=== PATIENT | male | born 1980 | race Two or more races ===

== ENCOUNTER 2018-08-06 02:04 | Emergency (ER) | payer OTHER ==
[2018-08-06 02:34] VITALS: BP 116/67; PULSE 60; TEMP 97.5; BMI 23.3
--- NOTE | 2018-08-06 03:14 | PDOC ---
*Physical Exam - Vital Signs Last Vital Signs Temp Pulse Resp BP Pulse Ox 97.5 F L 60 18 116/67 98 08/06/18 02:33 08/06/18 02:33 08/06/18 02:33 08/06/18 02:33 08/06/18 02:33 Medical Decision Making - Medical Decision Making 08/06/18 03:10 Patient seen by the advanced practice provider under my direct supervision. Ancillary testing reviewed as necessary. I agree with plan as outlined by the advanced practice provider. *DC/Admit/Observation/Transfer Diagnosis at time of Disposition: Corneal abrasion Qualifiers: Encounter type: initial encounter Laterality: right Qualified Code(s): S05.01XA - Injury of conjunctiva and corneal abrasion without foreign body, right eye, initial encounter - Discharge Dispostion Disposition: HOME Condition at time of disposition: Stable - Prescriptions Prescriptions: Tobramycin 0.3% Ophth Soln [Tobrex *Ophthalmic Solution*] 1 drop OD Q6H 5 Days # 1 bottle - Referrals Referrals: Jer Walls MD [Staff Physician] - - Patient Instructions Printed Discharge Instructions: DI for Corneal Abrasion Additional Instructions: Use prescribed medication as prescribed. Follow-up referred to ophthalmology as soon as possible for reassessment - Post Discharge Activity
--- NOTE | 2018-08-06 03:28 | PDOC ---
History of Present Illness - General Chief Complaint: Eye Problem Stated Complaint: RIGHT EYE SWELLLING Time Seen by Provider: 08/06/18 03:02 History Source: Patient Exam Limitations: Clinical Condition - History of Present Illness Initial Comments: 08/06/18 03:41 Patient with no significant past predication present with complaint of right eye pain and excessive tearing status post accidentally Walking into a wooden carbinet and scraping the right eye yesterday. Patient reported increased light sensitivity in right eye. Denies glued vision, change in vision. Denies contact lens use. Timing/Duration: 24 hours Past History - Past Medical History Allergies/Adverse Reactions: Allergies Allergy/AdvReac Type Severity Reaction Status Date / Time No Known Allergies Allergy Verified 08/06/18 02:32 Home Medications: Ambulatory Orders Tobramycin 0.3% Ophth Soln [Tobrex *Ophthalmic Solution*] 1 drop OD Q6H 5 Days # 1 bottle 08/06/18 - Suicide/Smoking/Psychosocial Hx Smoking History: Never smoked Have you smoked in the past 12 months: No Information on smoking cessation initiated: No Hx Alcohol Use: No Drug/Substance Use Hx: No Review of Systems - Review of Systems Able to Perform ROS?: Yes Is the patient limited Nepalese proficient: No Constitutional: No: Weakness HEENTM: Yes: Symptoms Reported, See HPI, Eye Pain (right eye), Tearing (right eye). No: Blurred Vision, Recent change in vision, Double Vision, Cataracts, Ear Pain, Ocular Prothesis, Ear Discharge, Nose Pain, Nose Congestion, Tinnitus , Nose Bleeding, Hearing Loss, Throat Pain, Throat Swelling, Mouth Pain, Dental Problems, Difficulty Swallowing, Mouth Swelling, Other Respiratory: No: Symptoms reported, See HPI, Cough, Orthopnea, Shortness of Breath, SOB with Exertion, SOB at Rest, Stridor, Wheezing, Productive cough, Hemoptysis, Other Cardiac (ROS): No: Symptoms Reported, See HPI, Chest Pain, Edema, Irregular Heart Rate, Lightheadedness, Palpitations, Syncope, Chest Tightness, Other ABD/GI: No: Nausea, Vomiting Neurological: No: Headache, Dizziness All Other Systems: Reviewed and Negative *Physical Exam - Vital Signs Last Vital Signs Temp Pulse Resp BP Pulse Ox 97.5 F L 60 18 116/67 98 08/06/18 02:33 08/06/18 02:33 08/06/18 02:33 08/06/18 02:33 08/06/18 02:33 - Physical Exam Comments: 08/06/18 03:44 GENERAL: Well developed, well nourished. Awake and alert. No acute distress. HEENT: Mild right conjunctival erythema with moderate clear tearing from right eye. Eyelids normal bilateral with no erythema or swelling to eyelids. 20/25 OD , 20/20 OS AND 20/20 OU on visual acuity. small 1mm superficial corneal abrasion to right eye on exam with flourescein stain. Normocephalic, atraumatic. PERRLA, EOMI. No left conjunctival pallor. Sclera are non-icteric. Moist mucous membranes. Oropharynx is clear. NECK: Supple. Full ROM. CARDIOVASCULAR: Regular rate and rhythm. No murmurs, rubs, or gallops. Distal pulses are 2+ and symmetric. PULMONARY: No evidence of respiratory distress. Lungs clear to auscultation bilaterally. No wheezing, rales or rhonchi. ABDOMINAL: Soft. Non-tender. Non-distended. No rebound or guarding. No organomegaly. Normoactive bowel sounds. MUSCULOSKELETAL Normal range of motion at all joints. SKIN: Warm and dry. No rashes. No jaundice. NEUROLOGICAL: Alert, awake, appropriate. Gait is normal without ataxia. PSYCHIATRIC: Cooperative. Good eye contact. Appropriate mood General Appearance: Yes: Nourished, Appropriately Dressed. No: Apparent Distress Moderate Sedation - Procedure Monitoring Vital Signs: Procedure Monitoring Vital Signs Temperature 97.5 F L 08/06/18 02:33 Pulse Rate 60 08/06/18 02:33 Respiratory Rate 18 08/06/18 02:33 Blood Pressure 116/67 08/06/18 02:33 O2 Sat by Pulse Oximetry (%) 98 08/06/18 02:33 Medical Decision Making - Medical Decision Making 08/06/18 03:47 Patient with no significant past predication present with complaint of right eye pain and excessive tearing status post accidentally Walking into a wooden carbinet and scraping the right eye yesterday. Patient reported increased light sensitivity in right eye. Denies glued vision, change in vision. Denies contact lens use. Exam significant for Mild right conjunctival erythema with moderate clear tearing from right eye. Eyelids normal bilateral with no erythema or swelling to eyelids. 20/25 OD, 20/20 OS AND 20/20 OU on visual acuity. small 1mm superficial corneal abrasion to right eye on exam with flourescein stain. Normocephalic, atraumatic. PERRLA, EOMI. No left conjunctival pallor 08/06/18 03:48 Patient reported improved eye pain after staining eye with ophthalmic tetracaine. Patient is stable for discharge on Tobrex ophthalmic eyedrops with ophthalmology follow-up *DC/Admit/Observation/Transfer Diagnosis at time of Disposition: Corneal abrasion Qualifiers: Encounter type: initial encounter Laterality: right Qualified Code(s): S05.01XA - Injury of conjunctiva and corneal abrasion without foreign body, right eye, initial encounter - Discharge Dispostion Disposition: HOME Condition at time of disposition: Stable Decision to Admit order: No - Prescriptions Prescriptions: Tobramycin 0.3% Ophth Soln [Tobrex *Ophthalmic Solution*] 1 drop OD Q6H 5 Days # 1 bottle - Referrals Referrals: Jer Walls MD [Staff Physician] - - Patient Instructions Printed Discharge Instructions: DI for Corneal Abrasion Additional Instructions: Use prescribed medication as prescribed. Follow-up referred to ophthalmology as soon as possible for reassessment - Post Discharge Activity
== END 2018-08-06 03:45 | disposition home or self-care (01) ==
LOC: JER 02:04
DX: S05.01XA Injury of conjunctiva and corneal abrasion without foreign body, right eye, initial encounter (principal); W22.8XXA Striking against or struck by other objects, initial encounter; Y93.89 Activity, other specified; Y92.89 Other specified places as the place of occurrence of the external cause; Y99.8 Other external cause status
CPT/HCPCS: 99281-25

== ENCOUNTER 2019-07-12 20:18 | Emergency (ER) | payer OTHER ==
[2019-07-12 20:47] VITALS: BP 118/62; PULSE 89; TEMP 99; BMI 23.3
--- NOTE | 2019-07-12 20:47 | PDOC ---
Rapid Medical Evaluation Chief Complaint: Cold Symptoms Time Seen by Provider: 07/12/19 20:45 Medical Evaluation: Allergies Allergy/AdvReac Type Severity Reaction Status Date / Time No Known Allergies Allergy Verified 08/06/18 02:32 07/12/19 20:46 pt c/o: cough , congestion x 1 day pt on brief exam: 99.7, lcta pt ordered for: none pt to proceed to proceed to the ED Discharge Disposition - Diagnosis Cough, Influenza - Discharge Dispostion Disposition: HOME Condition at time of disposition: Stable - Prescriptions Prescriptions: Oseltamivir Phosphate [Tamiflu] 75 mg PO BID #10 capsule - Referrals Referrals: Carla Morgan MD [Staff Physician] - - Patient Instructions Printed Discharge Instructions: DI for Viral Upper Respiratory Infection -- Adult Additional Instructions: Return to the emergency room for worsening symptoms and without fail follow-up with your primary care physician in 1 to 2 days for further evaluation and treatment options. Tylenol Motrin as directed for fever and body aches. Please take the Tamiflu as directed to help shorten the course of the flu virus. - Post Discharge Activity
[2019-07-12] MEDS ORDERED: ACETAMINOPHEN 500 MG TABLET (FP) PO ONE (22:21)
--- NOTE | 2019-07-12 22:23 | PDOC ---
History of Present Illness - General Chief Complaint: Cold Symptoms Stated Complaint: COUGH/FEVER Time Seen by Provider: 07/12/19 20:45 - History of Present Illness Initial Comments: 07/12/19 22:22 39-year-old male without comorbidities presents for flulike symptoms x1 day. Positive flu contact at home Past History - Past Medical History Allergies/Adverse Reactions: Allergies Allergy/AdvReac Type Severity Reaction Status Date / Time No Known Allergies Allergy Verified 07/12/19 20:49 Home Medications: Ambulatory Orders Tobramycin 0.3% Ophth Soln [Tobrex *Ophthalmic Solution*] 1 drop OD Q6H 5 Days # 1 bottle 08/06/18 Oseltamivir Phosphate [Tamiflu] 75 mg PO BID #10 capsule 07/12/19 COPD: No - Psycho Social/Smoking Cessation Hx Smoking History: Never smoked Have you smoked in the past 12 months: No Information on smoking cessation initiated: No Hx Alcohol Use: No Drug/Substance Use Hx: No Review of Systems - Review of Systems Constitutional: Yes: Fever Respiratory: Yes: Cough *Physical Exam - Vital Signs Last Vital Signs Temp Pulse Resp BP Pulse Ox 99.0 F 89 19 118/62 100 07/12/19 20:45 07/12/19 20:45 07/12/19 20:45 07/12/19 20:45 07/12/19 20:45 - Physical Exam 07/12/19 22:22 GENERAL: The patient is awake, alert, and fully oriented, in no acute distress. HEAD: Normal with no signs of trauma. EYES: sclera anicteric, conjunctiva clear. ENT: Ears normal tympanic membranes normal oropharynx clear uvula midline NECK: Normal range of motion LUNGS: Breath sounds equal, clear to auscultation bilaterally. No wheezes, and no crackles. HEART: S1 and S2 without murmur, rub or gallop. ABDOMEN: Soft, nontender, normoactive bowel sounds. No guarding, no rebound. No masses. EXTREMITIES: Normal range of motion, no edema. No clubbing or cyanosis. No cords, erythema, or tenderness. NEUROLOGICAL: Cranial nerves II through XII grossly intact. PSYCH: Normal mood, normal affect. SKIN: Warm, Dry, normal turgor, no rashes or lesions noted. Medical Decision Making - Medical Decision Making 07/12/19 22:22 Tylenol Motrin for fever Tamiflu for influenza Discharge - Discharge Information Problems reviewed: Yes Clinical Impression/Diagnosis: Cough, Influenza Condition: Stable Disposition: HOME - Admission No - Additional Discharge Information Prescriptions: Oseltamivir Phosphate [Tamiflu] 75 mg PO BID #10 capsule - Follow up/Referral Referrals: Carla Morgan MD [Staff Physician] - - Patient Discharge Instructions Patient Printed Discharge Instructions: DI for Viral Upper Respiratory Infection -- Adult Additional Instructions: Return to the emergency room for worsening symptoms and without fail follow-up with your primary care physician in 1 to 2 days for further evaluation and treatment options. Tylenol Motrin as directed for fever and body aches. Please take the Tamiflu as directed to help shorten the course of the flu virus. - Post Discharge Activity
[2019-07-12] MEDS ORDERED: ACETAMINOPHEN 500 MG TABLET (FP) ONE (22:29)
== END 2019-07-12 22:49 | disposition home or self-care (01) ==
LOC: JERFT 20:18
DX: J11.1 Influenza due to unidentified influenza virus with other respiratory manifestations (principal)
CPT/HCPCS: 99281-25

== ENCOUNTER 2021-02-04 22:27 | Emergency (ER) | payer OTHER ==
[2021-02-04 22:31] VITALS: BP 125/68; PULSE 60; TEMP 97.6; BMI 22.4
[2021-02-04] MEDS ORDERED: AMOX TR/POT CLAV 875MG/125MG TABLETS (FP) PO ONE (23:40)
[2021-02-04] MEDS ORDERED: AMOX TR/POT CLAV 875MG/125MG TABLETS (FP) ONE (23:50)
== END 2021-02-05 00:05 | disposition home or self-care (01) ==
LOC: JER 22:27
DX: H00.012 Hordeolum externum right lower eyelid (principal)
CPT/HCPCS: 99283-25